=== PATIENT | male | born 1990 | race Caucasian/White ===

== ENCOUNTER 2019-07-01 07:49 | Emergency (ER) | payer SELFPAY ==
[~2019-07-01] VITALS: Ht 177.8 cm; Wt 75.0 kg
--- NOTE | 2019-07-01 07:57 | PHYS DOC ---
Adult General Chief Complaint Chief Complaint: Seizure HPI HPI Patient is a 28 year old male who is brought to the ER by EMS due to a reported witnessed seizure this morning that lasted approximately 2 minutes. The patient was at [facility] [employer] when this occurred. 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 Patient reports to being off benzodiazepines for couple of months now. He states he feels normal. Denies chest pain or shortness of breath. He states he does not have a seizure disorder, denies drug use or alcohol use. No medications were given in route. Review of Systems Review of Systems All other ROS is negative unless otherwise stated in HPI Current Medications Current Medications Current Medications Medications (Trade) Dose Ordered Sig/Triston Start Time Stop Time Status Last Admin Dose Admin Sodium Chloride 1,000 ml @ 1,000 mls/hr 1X ONCE 07/01/19 08:15 07/01/19 09:14 DC 07/01/19 08:09 1,000 MLS/HR Allergies Allergies Allergies Coded Allergies Type Severity Reaction Last Updated Verified No Known Drug Allergies 07/01/19 No Physical Exam Physical Exam See above Constitutional: Well developed, well nourished, no acute distress, non-toxic appearance. [] HENT: Normocephalic, atraumatic, bilateral external ears normal, oropharynx moist, no oral exudates, nose normal. [] Eyes: PERRLA, EOMI, conjunctiva normal, no discharge. [] Neck: Normal range of motion, no tenderness, supple, no stridor. [] Cardiovascular:Heart rate regular rhythm, no murmur [] Lungs & Thorax: Bilateral breath sounds clear to auscultation [] Abdomen: Bowel sounds normal, soft, no tenderness, no masses, no pulsatile m asses. [] Skin: Warm, dry, no erythema, no rash. [] Back: No tenderness, no CVA tenderness. [] Extremities: No tenderness, no cyanosis, no clubbing, ROM intact, no edema. [] Neurologic: Alert and oriented X 3, normal motor function, normal sensory function, no focal deficits noted. [] Psychologic: Affect normal, judgement normal, mood normal. [] Current Patient Data Vital Signs Vital Signs Date Time Temp Pulse Resp B/P (MAP) Pulse Ox O2 Delivery O2 Flow Rate FiO2 07/01/19 07:57 98.5 120 20 152/85 (107) 93 Room Air 98.5 Lab Values Laboratory Tests Test 07/01/19 08:00 07/01/19 09:15 White Blood Count 9.4 x10^3/uL (4.0-11.0) Red Blood Count 5.00 x10^6/uL (4.30-5.70) Hemoglobin 16.4 g/dL (13.0-17.5) Hematocrit 48.5 % (39.0-53.0) Mean Corpuscular Volume 97 fL (79-100) Mean Corpuscular Hemoglobin 33 pg (25-35) Mean Corpuscular Hemoglobin Concent 34 g/dL (31-37) Red Cell Distribution Width 13.3 % (11.5-14.5) Platelet Count 329 x10^3/uL (140-400) Neutrophils (%) (Auto) 39 % (31-73) Lymphocytes (%) (Auto) 52 % (24-48) H Monocytes (%) (Auto) 6 % (0-9) Eosinophils (%) (Auto) 2 % (0-3) Basophils (%) (Auto) 1 % (0-3) Neutrophils # (Auto) 3.7 x10^3/uL (1.8-7.7) Lymphocytes # (Auto) 4.9 x10^3/uL (1.0-4.8) H Monocytes # (Auto) 0.5 x10^3/uL (0.0-1.1) Eosinophils # (Auto) 0.2 x10^3/uL (0.0-0.7) Basophils # (Auto) 0.1 x10^3/uL (0.0-0.2) Segmented Neutrophils % 34 % (35-66) L Lymphocytes % 52 % (24-48) H Atypical Lymphocytes % (Manual) 5 % (0-0) H Monocytes % 6 % (0-10) Eosinophils % 3 % (0-5) Platelet Estimate Adequate (ADEQUATE) Sodium Level 145 mmol/L (136-145) Potassium Level 3.5 mmol/L (3.5-5.1) Chloride Level 103 mmol/L (98-107) Carbon Dioxide Level 24 mmol/L (21-32) Anion Gap 18 (6-14) H Blood Urea Nitrogen 13 mg/dL (8-26) Creatinine 1.3 mg/dL (0.7-1.3) Estimated GFR (Cockcroft-Gault) 65.7 BUN/Creatinine Ratio 10 (6-20) Glucose Level 100 mg/dL (70-99) H Calcium Level 8.8 mg/dL (8.5-10.1) Total Bilirubin 0.3 mg/dL (0.2-1.0) Aspartate Amino Transferase (AST) 15 U/L (15-37) Alanine Aminotransferase (ALT) 35 U/L (16-63) Alkaline Phosphatase 73 U/L (46-116) Total Protein 6.3 g/dL (6.4-8.2) L Albumin 3.9 g/dL (3.4-5.0) Albumin/Globulin Ratio 1.6 (1.0-1.7) Ethyl Alcohol Level < 10 mg/dL (0-10) Urine Opiates Screen Neg (NEG) Urine Methadone Screen Neg (NEG) Urine Barbiturates Neg (NEG) Urine Phencyclidine Screen Neg (NEG) Urine Amphetamine/Methamphetamine Neg (NEG) Urine Benzodiazepines Screen Neg (NEG) Urine Cocaine Screen Neg (NEG) Urine Cannabinoids Screen Neg (NEG) Urine Ethyl Alcohol Neg (NEG) Laboratory Tests 07/01/19 08:00 Laboratory Tests 07/01/19 08:00 EKG EKG [] Radiology/Procedures Radiology/Procedures [] Course & Med Decision Making Course & Med Decision Making Pertinent Labs and Imaging studies reviewed. (See chart for details) 0756: Patient seen for witnessed seizure of 2 minutes. We will initiate workup including labs, urinalysis, EKG. If unremarkable the patient will be discharged home. 1011: Patient's workup is unremarkable. He remained seizure-free in the ER. Of note he did report to nursing staff he had a "relapse" approximately 1.5 weeks ago he ingested 4 mg of Xanax but nothing since. This time I do not see a need for admission as the patient had one blown seizure without known cause at this time. We will give him a referral to neurology should he have further seizures he should follow-up. Patient is stable for discharge at this time. Dragon Disclaimer Dragon Disclaimer This electronic medical record was generated, in whole or in part, using a voice recognition dictation system. Departure Departure Impression: Primary Impression: Seizure Disposition: HOME, SELF-CARE Condition: STABLE Referrals: IMTIAZ COSBY MD Please call for follow up appointment Patient Instructions: Seizure, Adult UNA MCALLISTER DO Jul 01, 2019 07:57
[2019-07-01 08:11] LABS: BASO # 0.1 x10^3/uL (0.0-0.2); BASO % 1 % (0-3); EOS # 0.2 x10^3/uL (0.0-0.7); EOS % 2 % (0-3); HEMATOCRIT 48.5 % (39.0-53.0); HEMOGLOBIN 16.4 g/dL (13.0-17.5); LYMPH # 4.9 x10^3/uL (1.0-4.8); LYMPH % 52 % (24-48); MEAN CORPUSCULAR HEMOGLOBIN 33 pg (25-35); MEAN CORPUSCULAR HGB CONC 34 g/dL (31-37); MEAN CORPUSCULAR VOLUME 97 fL (79-100); MONO # 0.5 x10^3/uL (0.0-1.1); MONO % 6 % (0-9); NEUT # 3.7 x10^3/uL (1.8-7.7); NEUT % 39 % (31-73); PLATELET COUNT 329 x10^3/uL (140-400); RED CELL DISTRIBUTION WIDTH 13.3 % (11.5-14.5); WHITE BLOOD COUNT 9.4 x10^3/uL (4.0-11.0)
[2019-07-01] MEDS ORDERED: IV NORMAL SALINE 1000ML BAG 1,000 ML IV ONE (08:15)
[2019-07-01 08:24] LABS: CALCIUM 8.8 mg/dL (8.5-10.1); CREATININE 1.3 mg/dL (0.7-1.3); GFR 65.7; POTASSIUM 3.5 mmol/L (3.5-5.1)
[2019-07-01 08:30] LABS: ALBUMIN 3.9 g/dL (3.4-5.0); ALBUMIN/GLOBULIN RATIO 1.6 (1.0-1.7); TOTAL BILIRUBIN 0.3 mg/dL (0.2-1.0); TOTAL PROTEIN 6.3 g/dL (6.4-8.2)
[2019-07-01 09:42] LABS: % ATYL 5 % (0-0); % EOS 3 % (0-5); % LYMPHS 52 % (24-48); % MONOS 6 % (0-10); % SEGS 34 % (35-66); PLT ESTIMATE ADEQUATE (ADEQUATE)
[2019-07-01 09:54] LABS: BARBITURATES NEG (NEG); BENZODIAZEPINES NEG (NEG); CANNABINOIDS NEG (NEG); COCAINE NEG (NEG); METHADONE NEG (NEG); OPIATES NEG (NEG); PHENCYCLIDINE NEG (NEG)
[2019-07-01 09:56] LABS: AMPHETAMINE/METHAMPHETAMINE NEG (NEG)
[2019-07-01 10:18] VITALS: BP 130/74
--- NOTE | 2019-07-01 11:39 | EKG ---
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
== END 2019-07-01 10:42 | disposition home or self-care (01) ==
LOC: ER 07:49
DX: G40.89 Other seizures (principal)
CPT/HCPCS: 36415; 80053; 80307; 85007; 85025; 93005; 99284; G0480; J7030

== ENCOUNTER 2021-04-21 09:40 | Emergency (ER) | payer OTHER ==
[~2021-04-21] VITALS: Ht 172.7 cm; Wt 70.4 kg
[2021-04-21] MEDS ORDERED: IV NORMAL SALINE 1000ML BAG 1,000 ML IV ONE ×2 (10:00→10:30)
[2021-04-21 10:15] LABS: BASO # 0.1 x10^3/uL (0.0-0.2); BASO % 1 % (0-3); EOS # 0.2 x10^3/uL (0.0-0.7); EOS % 2 % (0-3); HEMATOCRIT 45.5 % (39.0-53.0); HEMOGLOBIN 15.2 g/dL (13.0-17.5); LYMPH # 3.6 x10^3/uL (1.0-4.8); LYMPH % 42 % (24-48); MEAN CORPUSCULAR HEMOGLOBIN 32 pg (25-35); MEAN CORPUSCULAR HGB CONC 33 g/dL (31-37); MEAN CORPUSCULAR VOLUME 94 fL (79-100); MONO # 0.3 x10^3/uL (0.0-1.1); MONO % 4 % (0-9); NEUT # 4.3 x10^3/uL (1.8-7.7); NEUT % 50 % (31-73); PLATELET COUNT 327 x10^3/uL (140-400); RED BLOOD COUNT 4.83 x10^6/uL (4.30-5.70); RED CELL DISTRIBUTION WIDTH 12.8 % (11.5-14.5); WHITE BLOOD COUNT 8.5 x10^3/uL (4.0-11.0)
[2021-04-21 10:29] LABS: CREATININE 0.9 mg/dL (0.7-1.3); GFR 99.1; POTASSIUM 3.6 mmol/L (3.5-5.1)
[2021-04-21 10:30] LABS: AMPHETAMINE/METHAMPHETAMINE NEG (NEG); BARBITURATES NEG (NEG); BENZODIAZEPINES NEG (NEG); CANNABINOIDS NEG (NEG); COCAINE NEG (NEG); METHADONE NEG (NEG); OPIATES NEG (NEG); PHENCYCLIDINE NEG (NEG)
[2021-04-21 10:33] LABS: ALBUMIN 4.1 g/dL (3.4-5.0); ALBUMIN/GLOBULIN RATIO 1.1 (1.0-1.7); TOTAL BILIRUBIN 0.3 mg/dL (0.2-1.0); TOTAL PROTEIN 7.8 g/dL (6.4-8.2)
[2021-04-21 10:36] LABS: ACETAMIN < 2 mcg/ml (10-30); ETHANOL < 10 mg/dL (0-10); SALIC 2.3 mg/dL (2.8-20.0)
--- NOTE | 2021-04-21 10:43 | PHYS DOC ---
Past Medical History Past Medical History: No Pertinent History Past Surgical History: No Surgical History Smoking Status: Current Every Day Smoker Alcohol Use: None Adult General Chief Complaint Chief Complaint: SUBSTANCE ABUSE HPI HPI The patient is a 30-year-old male who presents for evaluation of multiple symptoms in the aftermath of consuming 5 capsules of kratom for recreational purposes. Patient states he typically only takes about 3 capsules at a time and thinks he used a little too much. His significant other witnessed some shaking of arms and legs at home; unclear if this was brief seizure activity or not as patient was alert and oriented and not having any convulsions when EMS arrived. Patient is a little tremulous and tachycardic on arrival here. He denies other symptoms and is alert and oriented, pleasantly and appropriately interactive and in no acute distress. He denies coingestions. He denies any self-harm intent. Review of Systems Review of Systems A 12 point review of systems was completed and was negative except where noted in HPI above. Current Medications Current Medications Current Medications Medications (Trade) Dose Ordered Sig/Triston Start Time Stop Time Status Last Admin Dose Admin Lorazepam (Ativan Inj) 0.5 mg 1X ONCE 04/21/21 10:00 04/21/21 10:01 DC Sodium Chloride 1,000 ml @ 1,000 mls/hr 1X ONCE 04/21/21 10:30 04/21/21 11:29 DC 04/21/21 11:19 1,000 MLS/HR Allergies Allergies Allergies Coded Allergies Type Severity Reaction Last Updated Verified No Known Drug Allergies 07/01/19 No Physical Exam Physical Exam 30-year-old male appearing nontoxic and in no acute distress. Head is normocephalic and atraumatic. Neck is supple and nontender. Oropharynx is moist. Lungs are clear to auscultation at all stations. There is normal S1 and S2 without rubs or gallops and capillary refill is appropriate, less than 2 seconds globally. Abdomen soft, nontender nondistended. Skin is warm and dry without cyanosis, clubbing or edema. Psychiatrically, the patient demonstrates appropriate mood and affect and is alert. Neurologically, cranial nerves II through XII are intact and there are no lateralizing deficits seen. Speech is normal. Language is normal. Coordination is normal. There is no dysmetria [id number] or odkk-cl-kylw bilaterally. Strength is 5 out of 5 at all joints of bilateral upper and lower extremities. Sensations intact light touch in bilateral upper and lower extremities. Patient ambulates with a narrow, steady, non-ataxic gait here in the emergency department and is alert and oriented x4. Current Patient Data Vital Signs Vital Signs Date Time Temp Pulse Resp B/P (MAP) Pulse Ox O2 Delivery O2 Flow Rate FiO2 04/21/21 09:40 99.3 111 24 167/90 (115) 97 Room Air 99.3 Lab Values Laboratory Tests Test 04/21/21 09:55 04/21/21 10:00 04/21/21 11:56 Urine Opiates Screen Neg (NEG) Urine Methadone Screen Neg (NEG) Urine Barbiturates Neg (NEG) Urine Phencyclidine Screen Neg (NEG) Urine Amphetamine/Methamphetamine Neg (NEG) Urine Benzodiazepines Screen Neg (NEG) Urine Cocaine Screen Neg (NEG) Urine Cannabinoids Screen Neg (NEG) Urine Ethyl Alcohol Neg (NEG) White Blood Count 8.5 x10^3/uL (4.0-11.0) Red Blood Count 4.83 x10^6/uL (4.30-5.70) Hemoglobin 15.2 g/dL (13.0-17.5) Hematocrit 45.5 % (39.0-53.0) Mean Corpuscular Volume 94 fL (79-100) Mean Corpuscular Hemoglobin 32 pg (25-35) Mean Corpuscular Hemoglobin Concent 33 g/dL (31-37) Red Cell Distribution Width 12.8 % (11.5-14.5) Platelet Count 327 x10^3/uL (140-400) Neutrophils (%) (Auto) 50 % (31-73) Lymphocytes (%) (Auto) 42 % (24-48) Monocytes (%) (Auto) 4 % (0-9) Eosinophils (%) (Auto) 2 % (0-3) Basophils (%) (Auto) 1 % (0-3) Neutrophils # (Auto) 4.3 x10^3/uL (1.8-7.7) Lymphocytes # (Auto) 3.6 x10^3/uL (1.0-4.8) Monocytes # (Auto) 0.3 x10^3/uL (0.0-1.1) Eosinophils # (Auto) 0.2 x10^3/uL (0.0-0.7) Basophils # (Auto) 0.1 x10^3/uL (0.0-0.2) Sodium Level 143 mmol/L (136-145) Potassium Level 3.6 mmol/L (3.5-5.1) Chloride Level 102 mmol/L (98-107) Carbon Dioxide Level 27 mmol/L (21-32) Anion Gap 14 (6-14) Blood Urea Nitrogen 11 mg/dL (8-26) Creatinine 0.9 mg/dL (0.7-1.3) Estimated GFR (Cockcroft-Gault) 99.1 BUN/Creatinine Ratio 12 (6-20) Glucose Level 84 mg/dL (70-99) Calcium Level 8.0 mg/dL (8.5-10.1) L Total Bilirubin 0.3 mg/dL (0.2-1.0) Aspartate Amino Transferase (AST) 18 U/L (15-37) Alanine Aminotransferase (ALT) 27 U/L (16-63) Alkaline Phosphatase 101 U/L (46-116) Total Protein 7.8 g/dL (6.4-8.2) Albumin 4.1 g/dL (3.4-5.0) Albumin/Globulin Ratio 1.1 (1.0-1.7) Salicylates Level 2.3 mg/dL (2.8-20.0) L Salicylate Last Dose Date Unknown Salicylate Last Dose Time Unknown Acetaminophen Level < 2 mcg/ml (10-30) L Acetaminophen Last Dose Date Unknown Acetaminophen Last Dose Time Unknown Ethyl Alcohol Level < 10 mg/dL (0-10) SARS-CoV-2 Antigen (Rapid) Negative (NEGATIVE) Laboratory Tests 04/21/21 10:00 Laboratory Tests 04/21/21 10:00 EKG EKG Sinus rhythm, rate 109, no acute ST elevation or depression, ME 184, QRS 104, QTc 454, EP interpretation. Nonischemic tracing, intervals appropriate. Radiology/Procedures Radiology/Procedures [] Course & Med Decision Making Course & Med Decision Making 30-year-old male presenting for multiple symptoms after a recreational ingestion of kratom prior to arrival. Case discussed with the [place] [facility] who advised that seizure activity has been reported with kratom overdose, and that tremulousness and tachycardia are quite frequent side effects. Checking basic and tox labs and EKG and will give IV fluids and a small dose of Ativan and will observe for time and will then reevaluate. [place] [facility] agrees with these management steps and has no further recommendations. 1414: Patient has been observed uneventfully for multiple hours here in the emergency department. After fluids, heart rate has normalized. He is resting comfortably and feels back to baseline and is ready to go home. Per his request we had the psychiatric internet researcher come to see him to help him identify some outpatient treatment resources for his substance abuse problems. Denies suicidality. We will proceed with discharge home at this time. Patient understands that if he feels worse instead of better or develops other new symptoms of concern that he will need to return to the emergency department i mmediately for reevaluation. All questions are answered. Dragon Disclaimer Dragon Disclaimer This electronic medical record was generated, in whole or in part, using a voice recognition dictation system. Departure Departure Impression: Primary Impression: Overdose of drug/medicinal substance Disposition: HOME / SELF CARE / HOMELESS Condition: IMPROVED Patient Instructions: Substance Abuse-Brief Additional Instructions: Follow-up very closely with your primary care doctor in the office in the next 2 to 4 days for a reevaluation of your symptoms and discussion of next best steps in care. Drink plenty of fluids and get plenty of rest. Even though Kratom is not illegal, it is a substance of abuse and you will reduce risks to your health by electing not to use it. We discussed ways to seek outpatient treatment for your substance abuse problems and it is important that you follow- up using the resources you were given. Return to see us right away for worsening symptoms of any kind or with any other new symptoms of concern. Problem Qualifiers Primary Impression: Overdose of drug/medicinal substance Encounter type: initial encounter Injury intent: accidental or unintentional Qualified Codes: T50.901A - Poisoning by unspecified drugs, medicaments and biological substances, accidental (unintentional), initial encounter KATY VINCENT MD Apr 21, 2021 10:43
--- NOTE | 2021-04-21 12:05 | EKG ---
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
[2021-04-21 14:30] VITALS: BP 115/73
--- NOTE | 2021-04-22 16:29 | NUR ---
IP: Informed pt of negative covid test. Pt verbalized understanding.
== END 2021-04-21 14:40 | disposition home or self-care (01) ==
LOC: ER 09:40
DX: T50.991A Poisoning by other drugs, medicaments and biological substances, accidental (unintentional), initial encounter (principal); G25.2 Other specified forms of tremor; R56.9 Unspecified convulsions; F17.200 Nicotine dependence, unspecified, uncomplicated; Z20.822 Contact with and (suspected) exposure to COVID-19; Y92.89 Other specified places as the place of occurrence of the external cause
CPT/HCPCS: 36415; 80053; 80307; 80329; 85025; 87426; 93005; 96360; 96361; 99285; G0480; J7030; U0003; U0005